=== PATIENT | female | born 1980 | race African-American/Black ===

== ENCOUNTER 2018-04-13 12:27 | Emergency (ER) | payer SELFPAY ==
[~2018-04-13] VITALS: Ht 172.7 cm; Wt 77.1 kg
[2018-04-13 13:24] LABS: BASO % 1 % (0-3); EOS # 0.1 x10^3/uL (0.0-0.7); EOS % 1 % (0-3); HEMATOCRIT 40.8 % (36.0-47.0); LYMPH # 1.7 x10^3/uL (1.0-4.8); LYMPH % 22 % (24-48); MEAN CORPUSCULAR HEMOGLOBIN 28 pg (25-35); MEAN CORPUSCULAR HGB CONC 34 g/dL (31-37); MEAN CORPUSCULAR VOLUME 82 fL (79-100); MONO # 0.5 x10^3/uL (0.0-1.1); MONO % 7 % (0-9); NEUT # 5.2 x10^3uL (1.8-7.7); NEUT % 69 % (31-73); PLATELET COUNT 278 x10^3/uL (140-400); RED BLOOD COUNT 4.97 x10^6/uL (3.50-5.40); RED CELL DISTRIBUTION WIDTH 12.8 % (11.5-14.5); WHITE BLOOD COUNT 7.5 x10^3/uL (4.0-11.0)
[2018-04-13 13:33] LABS: BILIRUBIN,URINE SMALL (NEG); CLARITY,URINE CLOUDY; COLOR,URINE AMBER; NITRITE,URINE NEGATIVE (NEG); PH,URINE 5.5; PROTEIN,URINE 30 mg/dL (NEG-TRACE); UROBILINOGEN,URINE 0.2 mg/dL (0.2 mg/dL)
[2018-04-13 13:35] LABS: BACTERIA,URINE MOD /HPF (0-FEW); CALCIUM 9.7 mg/dL (8.5-10.1); CREATININE 0.8 mg/dL (0.6-1.0); GFR 80.3; POTASSIUM 3.2 mmol/L (3.5-5.1); RBC,URINE OCC /HPF (0-2); SQUAMOUS EPITHELIAL CELL,UR MANY /LPF
--- NOTE | 2018-04-13 14:02 | RAD ---
PORTABLE CHEST 1V Clinical indications: CHEST PAIN X3 DAYS WITH SLIGHT COUGH AND HEADACHE COMPARISON: None available. Findings: There is a small right infrahilar lung infiltrate. No pleural effusion or pneumothorax is seen. The heart size, pulmonary vasculature, mediastinum and both paris are unremarkable. Impression: Small right infrahilar lung infiltrate. Electronically signed by: Iker Lewis MD (04/13/2018 1:59 PM) [facility]
--- NOTE | 2018-04-13 14:24 | PHYS DOC ---
Past Medical History Past Medical History: Anxiety, Bipolar, Hypertension, Other Additional Past Medical Histor: PTSD Past Surgical History: No Surgical History Additional Information: 0.5 PPD Alcohol Use: Heavy Additional Information: DRINKS DAILY, IF HAS THE ALCOHOL Drug Use: Marijuana Adult General Chief Complaint Chief Complaint: CHEST WALL PAIN [facility] HPI Patient is a 37 year old female who presents with chest pain. Patient has been having pleuritic type chest pain over the last 2-3 days. She states the pain is worse with inspiration. Pain is nonradiating. She has no fever or chills or cough. She denies prior history of similar symptoms. She does not take estrogen. She has had no recent travel. She does not have coronary artery disease risk factors other than she does use tobacco. Review of Systems Review of Systems Constitutional: Denies fever or chills Eyes: Denies change in visual acuity HENT: Denies nasal congestion or sore throat Respiratory: Denies cough Cardiovascular: No additional information not addressed in HPI GI: Denies abdominal pain, nausea : Denies dysuria or hematuria Musculoskeletal: Denies back pain or joint pain Integument: Denies rash or skin lesions Neurologic: Denies headache Endocrine: Denies polyuria All other systems were reviewed and found to be within normal limits, except as documented in this note. Current Medications Current Medications Current Medications Medications (Trade) Dose Ordered Sig/[facility] Start Time Stop Time Status Last Admin Dose Admin Acetaminophen/ Hydrocodone Bitart (Lortab 7.5/325) 1 tab 1X ONCE 04/13/18 14:30 04/13/18 14:33 DC Azithromycin (Zithromax) 500 mg 1X ONCE 04/13/18 14:30 04/13/18 14:33 DC Ibuprofen (Motrin) 800 mg 1X ONCE 04/13/18 14:30 04/13/18 14:33 DC Allergies Allergies Allergies Coded Allergies Type Severity Reaction Last Updated Verified No Known Drug Allergies 04/13/18 No Physical Exam Physical Exam Constitutional: Well developed, well nourished, no acute distress HENT: Normocephalic, atraumatic, bilateral external ears normal, oropharynx moist Eyes: PERRLA, EOMI, conjunctiva normal Neck: Normal range of motion Cardiovascular:Heart rate regular rhythm, no murmur Lungs & Thorax: Bilateral breath sounds clear to auscultation Abdomen: Bowel sounds normal, soft, no tenderness Skin: Warm, dry, no erythema, no rash Extremities: No edema Neurologic: Alert and oriented X 3 Psychologic: Affect normal Current Patient Data Vital Signs Vital Signs Date Time Temp Pulse Resp B/P (MAP) Pulse Ox O2 Delivery O2 Flow Rate FiO2 04/13/18 12:34 98.6 66 14 184/90 (121) 99 Room Air 98.6 Lab Values Laboratory Tests Test 04/13/18 13:15 04/13/18 13:20 White Blood Count 7.5 x10^3/uL (4.0-11.0) Red Blood Count 4.97 x10^6/uL (3.50-5.40) Hemoglobin 14.0 g/dL (12.0-15.5) Hematocrit 40.8 % (36.0-47.0) Mean Corpuscular Volume 82 fL (79-100) Mean Corpuscular Hemoglobin 28 pg (25-35) Mean Corpuscular Hemoglobin Concent 34 g/dL (31-37) Red Cell Distribution Width 12.8 % (11.5-14.5) Platelet Count 278 x10^3/uL (140-400) Neutrophils (%) (Auto) 69 % (31-73) Lymphocytes (%) (Auto) 22 % (24-48) L Monocytes (%) (Auto) 7 % (0-9) Eosinophils (%) (Auto) 1 % (0-3) Basophils (%) (Auto) 1 % (0-3) Neutrophils # (Auto) 5.2 x10^3uL (1.8-7.7) Lymphocytes # (Auto) 1.7 x10^3/uL (1.0-4.8) Monocytes # (Auto) 0.5 x10^3/uL (0.0-1.1) Eosinophils # (Auto) 0.1 x10^3/uL (0.0-0.7) Basophils # (Auto) 0.0 x10^3/uL (0.0-0.2) D-Dimer (Lashaun) 0.32 ug/mlFEU (0.00-0.50) Urine Collection Type Void Urine Color Ivana Urine Clarity Cloudy Urine pH 5.5 Urine Specific [place] >=1.030 Urine Protein 30 mg/dL (NEG-TRACE) Urine Glucose (UA) Negative mg/dL (NEG) Urine Ketones (Stick) Trace mg/dL (NEG) Urine Blood Negative (NEG) Urine Nitrite Negative (NEG) Urine Bilirubin Small (NEG) Urine Urobilinogen Dipstick 0.2 mg/dL (0.2 mg/dL) Urine Leukocyte Esterase Small (NEG) Urine RBC Occ /HPF (0-2) Urine WBC 5-10 /HPF (0-4) Urine Squamous Epithelial Cells Many /LPF Urine Bacteria Mod /HPF (0-FEW) Urine Mucus Mod /LPF Sodium Level 137 mmol/L (136-145) Potassium Level 3.2 mmol/L (3.5-5.1) L Chloride Level 100 mmol/L (98-107) Carbon Dioxide Level 29 mmol/L (21-32) Anion Gap 8 (6-14) Blood Urea Nitrogen 11 mg/dL (7-20) Creatinine 0.8 mg/dL (0.6-1.0) Estimated GFR (Cockcroft-Gault) 80.3 Glucose Level 112 mg/dL (70-99) H Calcium Level 9.7 mg/dL (8.5-10.1) Troponin I Quantitative < 0.017 ng/mL (0.000-0.055) POC Urine HCG, Qualitative Hcg negative (Negative) Laboratory Tests 04/13/18 13:15 Laboratory Tests 04/13/18 13:15 EKG EKG No STEMI Interpretation Time: 12:45 Radiology/Procedures Radiology/Procedures COMPARISON: None available. Findings: There is a small right infrahilar lung infiltrate. No pleural effusion or pneumothorax is seen. The heart size, pulmonary vasculature, mediastinum and both paris are unremarkable. Impression: Small right infrahilar lung infiltrate. Course & Med Decision Making Course & Med Decision Making Pertinent Labs and Imaging studies reviewed. (See chart for details) Patient is evaluated in the emergency department for chest pain. Although she has no symptoms subjectively for pneumonia, her x-ray does show an infiltrate which could represent source for her pain. She has had pain for 2-3 days. Her EKG does not reveal acute findings. Her troponin is not elevated. Her d-dimer is normal range. In the ER, she is given a dose of ibuprofen and [place] and started on azithromycin. She is discharged home with the same medications. She is advised to come back to the ER for any new or worsening symptoms. Otherwise follow-up with her primary care doctor. Opiate precautions were discussed and all of her questions are answered prior to discharge. Dragon Disclaimer Dragon Disclaimer This electronic medical record was generated, in whole or in part, using a voice recognition dictation system. Departure Departure Referrals: NO PCP (PCP) Scripts Azithromycin (AZITHROMYCIN TABLET) 250 Mg Tablet 250 MG PO DAILY for ANTI-BIOTIC for 4 Days, #4 TAB 0 Refills Prov: YUNIOR HALL DO 04/13/18 Hydrocodone/Apap 5-325 (NORCO 5-325 TABLET) 1 Each Tablet 1-2 EACH PO PRN Q6HRS PRN for severe pain, #15 as needed for pain Prov: YUNIOR HALL DO 04/13/18 Ibuprofen (IBUPROFEN) 800 Mg Tablet 800 MG PO PRN TID PRN for PAIN, #20 TAB take with food or milk to avoid upsetting stomach Prov: YUNIOR HALL DO 04/13/18 YUNIOR HALL DO Apr 13, 2018 14:24
[2018-04-13] MEDS ORDERED: HYDROcodone/APAP 7.5/325MG 1 TAB TABLET PO ONE (14:30)
[2018-04-13] MEDS ORDERED: IBUPROFEN 800 MG TABLET. PO ONE (14:30)
[2018-04-13] MEDS ORDERED: AZITHROMYCIN 250 MG TABLET. PO ONE (14:30)
[2018-04-13 14:40] VITALS: BP 145/80
[2018-04-13] MEDS ORDERED: IBUP-1060 PO (14:44)
[2018-04-13] MEDS ORDERED: AZIT250T6 PO (14:44)
[2018-04-13] MEDS ORDERED: HYDR-971 PO (14:44)
--- NOTE | 2018-04-13 14:54 | EKG ---
[facility] [address] [place] [address] Test Date: 2018-04-13 Test Time: 12:39:04 Pat Name: ANSHUL BIGGS Department: Room: Gender: F Interactive Designer: : 1980 Requested By: YUNIOR HALL Order Number: [id number] Reading MD: Vivek Canseco MD Measurements Intervals [place] Rate: 66 P: 42 [place]: 116 QRS: 55 QRSD: 80 T: 39 QT: 398 QTc: 419 Interpretive Statements SINUS RHYTHM Electronically Signed On 04-15-2018 12:09:01 CDT by Vivek Canseco MD
== END 2018-04-13 15:13 | disposition home or self-care (01) ==
LOC: ER 12:27
DX: R07.89 Other chest pain (principal); F41.9 Anxiety disorder, unspecified; F31.9 Bipolar disorder, unspecified; I10 Essential (primary) hypertension; F17.200 Nicotine dependence, unspecified, uncomplicated; F10.10 Alcohol abuse, uncomplicated; Y90.9 Presence of alcohol in blood, level not specified
CPT/HCPCS: 36415; 71045; 80048; 81001; 81025; 84484; 85025; 85379; 93005; 99285; Q0144

== ENCOUNTER 2018-04-23 11:37 | Emergency (ER) | payer SELFPAY ==
[~2018-04-23] VITALS: Ht 172.7 cm; Wt 74.8 kg
[~2018-04-23 11:37] MED LIST: AZIT250T6 PO; HYDR-971 PO; IBUP-1060 PO
--- NOTE | 2018-04-23 12:28 | RAD ---
Single view of the chest. 04/23/2018 12:17 PM Indication: CHEST PAIN X LAST NIGHT
HYPERTENSION Comparison: None Findings: There is no focal consolidation. There is no pleural effusion or pneumothorax. The cardiomediastinal silhouette and pulmonary vasculature are within normal limits. No acute osseous abnormalities are seen. Impression: No evidence of acute cardiopulmonary process. Electronically signed by: Tigre Gonzalez MD (04/23/2018 12:24 PM) [facility]
[2018-04-23 12:39] LABS: BASO # 0.1 x10^3/uL (0.0-0.2); BASO % 1 % (0-3); EOS % 0 % (0-3); HEMATOCRIT 38.8 % (36.0-47.0); HEMOGLOBIN 13.4 g/dL (12.0-15.5); LYMPH # 1.7 x10^3/uL (1.0-4.8); LYMPH % 24 % (24-48); MEAN CORPUSCULAR HEMOGLOBIN 28 pg (25-35); MEAN CORPUSCULAR HGB CONC 35 g/dL (31-37); MEAN CORPUSCULAR VOLUME 82 fL (79-100); MONO # 0.5 x10^3/uL (0.0-1.1); MONO % 7 % (0-9); NEUT % 68 % (31-73); PLATELET COUNT 261 x10^3/uL (140-400); RED BLOOD COUNT 4.75 x10^6/uL (3.50-5.40); RED CELL DISTRIBUTION WIDTH 13.1 % (11.5-14.5); WHITE BLOOD COUNT 7.3 x10^3/uL (4.0-11.0)
[2018-04-23 12:46] LABS: CALCIUM 8.6 mg/dL (8.5-10.1); CREATININE 0.8 mg/dL (0.6-1.0); GFR 97.1; POTASSIUM 3.7 mmol/L (3.5-5.1)
[2018-04-23 12:52] LABS: ALBUMIN 3.8 g/dL (3.4-5.0); ALBUMIN/GLOBULIN RATIO 0.9 (1.0-1.7); TOTAL BILIRUBIN 0.5 mg/dL (0.2-1.0); TOTAL PROTEIN 8.1 g/dL (6.4-8.2)
--- NOTE | 2018-04-23 13:06 | PHYS DOC ---
Past Medical History Past Medical History: Anxiety, Bipolar, Depression, Hypertension, Other Additional Past Medical Histor: PTSD Past Surgical History: No Surgical History Additional Information: 1/2 pack a day Alcohol Use: Heavy Additional Information: 5th a day of liquor Drug Use: Marijuana Adult General Chief Complaint Chief Complaint: CHEST WALL PAIN [facility] HPI 37-year-old female with multiple untreated psychiatric issues presents with 2 day history of sharp chest pain. She denies any shortness of breath or dyspnea on exertion. She denies any cough. She denies fever chills or sweats. She denies any hemoptysis. She states the pain actually gets better when she is up moving around. [] Review of Systems Review of Systems Constitutional: Denies fever or chills [] Eyes: Denies change in visual acuity, redness, or eye pain [] HENT: Denies nasal congestion or sore throat [] Respiratory: Denies cough or shortness of breath [] Cardiovascular: No additional information not addressed in HPI [] GI: Denies abdominal pain, nausea, vomiting, bloody stools or diarrhea [] : Denies dysuria or hematuria [] Musculoskeletal: Denies back pain or joint pain [] Integument: Denies rash or skin lesions [] Neurologic: Denies headache, focal weakness or sensory changes [] Endocrine: Denies polyuria or polydipsia [] All other systems were reviewed and found to be within normal limits, except as documented in this note. Allergies Allergies Allergies Coded Allergies Type Severity Reaction Last Updated Verified No Known Drug Allergies 04/13/18 No Physical Exam Physical Exam Constitutional: Well developed, well nourished, no acute distress, non-toxic appearance. [] HENT: Normocephalic, atraumatic, bilateral external ears normal, oropharynx moist, no oral exudates, nose normal. [] Eyes: PERRLA, EOMI, conjunctiva normal, no discharge. [] Neck: Normal range of motion, no tenderness, supple, no stridor. [] Cardiovascular:Heart rate regular rhythm, no murmur [] Lungs & Thorax: Bilateral breath sounds clear to auscultation [] Abdomen: Bowel sounds normal, soft, no tenderness, no masses, no pulsatile masses. [] Skin: Warm, dry, no erythema, no rash. [] Back: No tenderness, no CVA tenderness. [] Extremities: No tenderness, no cyanosis, no clubbing, ROM intact, no edema. [] Neurologic: Alert and oriented X 3, normal motor function, normal sensory function, no focal deficits noted. [] Psychologic: Anxious[] Current Patient Data Vital Signs Vital Signs Date Time Temp Pulse Resp B/P (MAP) Pulse Ox O2 Delivery O2 Flow Rate FiO2 04/23/18 11:50 98.0 78 20 204/108 (140) 100 Room Air 98.0 Lab Values Laboratory Tests Test 04/23/18 12:10 04/23/18 12:25 POC Urine HCG, Qualitative Hcg negative (Negative) White Blood Count 7.3 x10^3/uL (4.0-11.0) Red Blood Count 4.75 x10^6/uL (3.50-5.40) Hemoglobin 13.4 g/dL (12.0-15.5) Hematocrit 38.8 % (36.0-47.0) Mean Corpuscular Volume 82 fL (79-100) Mean Corpuscular Hemoglobin 28 pg (25-35) Mean Corpuscular Hemoglobin Concent 35 g/dL (31-37) Red Cell Distribution Width 13.1 % (11.5-14.5) Platelet Count 261 x10^3/uL (140-400) Neutrophils (%) (Auto) 68 % (31-73) Lymphocytes (%) (Auto) 24 % (24-48) Monocytes (%) (Auto) 7 % (0-9) Eosinophils (%) (Auto) 0 % (0-3) Basophils (%) (Auto) 1 % (0-3) Neutrophils # (Auto) 5.0 x10^3uL (1.8-7.7) Lymphocytes # (Auto) 1.7 x10^3/uL (1.0-4.8) Monocytes # (Auto) 0.5 x10^3/uL (0.0-1.1) Eosinophils # (Auto) 0.0 x10^3/uL (0.0-0.7) Basophils # (Auto) 0.1 x10^3/uL (0.0-0.2) Sodium Level 133 mmol/L (136-145) L Potassium Level 3.7 mmol/L (3.5-5.1) Chloride Level 100 mmol/L (98-107) Carbon Dioxide Level 23 mmol/L (21-32) Anion Gap 10 (6-14) Blood Urea Nitrogen 8 mg/dL (7-20) Creatinine 0.8 mg/dL (0.6-1.0) Estimated GFR (Cockcroft-Gault) 97.1 BUN/Creatinine Ratio 10 (6-20) Glucose Level 73 mg/dL (70-99) Calcium Level 8.6 mg/dL (8.5-10.1) Total Bilirubin 0.5 mg/dL (0.2-1.0) Aspartate Amino Transferase (AST) 18 U/L (15-37) Alanine Aminotransferase (ALT) 25 U/L (14-59) Alkaline Phosphatase 87 U/L (46-116) Troponin I Quantitative < 0.017 ng/mL (0.000-0.055) Total Protein 8.1 g/dL (6.4-8.2) Albumin 3.8 g/dL (3.4-5.0) Albumin/Globulin Ratio 0.9 (1.0-1.7) L Laboratory Tests 04/23/18 12:25 Laboratory Tests 04/23/18 12:25 EKG EKG [EKG: Normal sinus rhythm rate of [address]-T changes] Radiology/Procedures Radiology/Procedures [] Impressions: REASON: chest pain PROCEDURE: CHEST AP ONLY Single view of the chest. 04/23/2018 12:17 PM Indication: CHEST PAIN X LAST NIGHT
HYPERTENSION Comparison: None Findings: There is no focal consolidation. There is no pleural effusion or pneumothorax. The cardiomediastinal silhouette and pulmonary vasculature are within normal limits. No acute osseous abnormalities are seen. Impression: No evidence of acute cardiopulmonary process. Course & Med Decision Making Course & Med Decision Making Pertinent Labs and Imaging studies reviewed. (See chart for details) [ED course: Evaluation reveals a 37-year-old female with atypical type chest pain. Her EKG troponin were negative. Chest x-ray was clear. I do not believe this is cardiac pain. Of encourage her to follow with her primary care physician as an outpatient.] Dragon Disclaimer Dragon Disclaimer This electronic medical record was generated, in whole or in part, using a voice recognition dictation system. Departure Departure Impression: Primary Impression: Chest pain Disposition: 01 HOME, SELF-CARE Condition: STABLE Referrals: NO PCP (PCP) Patient Instructions: Chest Pain (Nonspecific), Chest Wall Pain Additional Instructions: Use Tylenol and Motrin as needed for pain. Return to the emergency department with any new or concerning symptoms Problem Qualifiers Primary Impression: Chest pain Chest pain type: other chest pain Qualified Codes: R07.89 - Other chest pain LEWIS TODD DO Apr 23, 2018 13:06
--- NOTE | 2018-04-23 13:06 | EKG ---
[facility] [address] [place] [address] Test Date: 2018-04-23 Test Time: 11:54:48 Pat Name: ANSHUL BIGGS Department: Room: Gender: F Real Estate Administrator: KOMAL : 1980 Requested By: LEWIS TODD Order Number: [id number] Reading MD: Vivek Canseco MD Measurements Intervals [place] Rate: 78 P: 37 ID: [id number] QRS: 46 QRSD: 78 T: 47 QT: 376 QTc: 432 Interpretive Statements SINUS RHYTHM Electronically Signed On 04-24-2018 13:47:59 CDT by Vivek Canseco MD
[2018-04-23 13:22] VITALS: BP 207/101
== END 2018-04-23 13:30 | disposition home or self-care (01) ==
LOC: ER 11:37
DX: R07.89 Other chest pain (principal); F41.9 Anxiety disorder, unspecified; F31.9 Bipolar disorder, unspecified; I10 Essential (primary) hypertension; F17.200 Nicotine dependence, unspecified, uncomplicated; F10.20 Alcohol dependence, uncomplicated; Y90.9 Presence of alcohol in blood, level not specified
CPT/HCPCS: 36415; 71045; 80053; 81025; 84484; 85025; 93005; 99285-25